=== PATIENT | female | born 1990 | race Hispanic/Latino ===

== ENCOUNTER 2018-03-29 11:03 | Emergency (ER) | payer OTHER ==
[2018-03-29] MEDS ORDERED: Sodium Chloride 0.9% 1,000 ML IV STA (12:08)
--- NOTE | 2018-03-29 12:17 | ED PDOC ---
HPI: Abdomen Time Seen by Provider: 03/29/18 11:48 Chief Complaint (Nursing): Chest Pain Chief Complaint (Provider): Abdominal pain History Per: Patient History/Exam Limitations: no limitations Additional Complaint(s): Pt @ 26 weeks reports bilateral upper abdominal pain X 1 day, constant, associated with bilateral lower back pain. Denies fever, nausea, vomiting, constipation, diarrhea, vaginal bleeding, vaginal discharge. Abnormal Vaginal Bleeding: No Past Medical History Reviewed: Nursing Documentation, Vital Signs Vital Signs: Last Vital Signs Temp 97.7 F 03/29/18 11:25 Pulse 77 03/29/18 11:25 Resp 17 03/29/18 11:25 BP 108/60 03/29/18 11:25 Pulse Ox 99 03/29/18 12:18 - Surgical History Surgical History: No Surg Hx - Family History Family History: States: Unknown Family Hx - Living Arrangements Living Arrangements: With Family - Social History Current smoker - smoking cessation education provided: No Alcohol: None - Allergies Allergies/Adverse Reactions: Allergies Allergy/AdvReac Type Severity Reaction Status Date / Time No Known Allergies Allergy Verified 03/29/18 11:24 Review of Systems Constitutional: Negative for: Fever, Chills Cardiovascular: Negative for: Chest Pain, Palpitations Respiratory: Negative for: Cough, Shortness of Breath Gastrointestinal: Positive for: Abdominal Pain. Negative for: Nausea, Vomiting , Diarrhea Genitourinary Female: Negative for: Dysuria, Hematuria, Vaginal Discharge, Vaginal Bleeding, Pelvic Pain Musculoskeletal: Positive for: Back Pain. Negative for: Neck Pain Skin: Negative for: Rash, Lesions Neurological: Negative for: Weakness, Numbness, Headache, Dizziness Physical Exam - Reviewed Nursing Documentation Reviewed: Yes Vital Signs Reviewed: Yes - Physical Exam Appears: Positive for: Well, No Acute Distress Skin: Positive for: Normal Color, Warm, Dry Eye Exam: Positive for: Normal appearance, EOMI, PERRL Cardiovascular/Chest: Positive for: Regular Rate, Rhythm Respiratory: Positive for: Normal Breath Sounds. Negative for: Rales, Rhonchi, Wheezing Gastrointestinal/Abdominal: Positive for: Normal Exam, Bowel Sounds, Soft, Other (Gravid). Negative for: Tenderness Back: Positive for: Normal Inspection, Other (TTP bilateral lower back). 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 Negative for: Motor/Sensory Deficits - ECG O2 Sat by Pulse Oximetry: 99 Medical Decision Making Medical Decision Making: Pt refusing further IV attempts. 13:[address] Galo, transfer to Ob ED. Disposition - Clinical Impression Clinical Impression: Abdominal pain during in second trimester - Disposition Disposition: Transfer of Care ([facility] ED) Disposition Time: 13:32 Condition: STABLE Instructions: Acute Abdomen (Belly Pain) Forms: [employer] ([place]i)
[2018-03-29] MEDS ORDERED: Famotidine 20mg/50ml 20 MG/50 ML BAG IVPB ONE (12:26)
[2018-03-29 13:49] VITALS: BP 110/68; PULSE 84; RESP 18; TEMP 97.8; O2SAT 100
[2018-03-29] MEDS ORDERED: Bicitra 30 ML UD PO ONE (15:21)
--- NOTE | 2018-03-29 15:53 | OBHP ---
Datetime: 03/29/2018 15:46 IP Adm Impression: , intrauterine IP Chief Complaint Other: mid epigastric discomfort,, N/V IP Admit Plan: Observation/Evaluation; Discharge home Admit Comment, IP Provider: Patient is a @ 25.5 wks with a history of mid-epigastric discomfort , nausea/vomiting, some episodes of diarhea yesterday. Patient was being triaged in the main ER, vomi kris once, currently feels better, denies discomfort except for mild abdominal discomfort, no fever, n o diarrhea today, no vaginal bleeding, no leaking, no dysuria. Pt did not have any food this morning. +FHR reassuring 150 mod delores, no accels, no decels, no contractions on the monitor. On exam, no pain on abdominal palpation, VSS. PO challenge was given and Bicitra. Overall patient was feeling better. Pt reported she was at a [employer] over the weekend and multiple people reportedly had food poisoning. Tiago waggoner discharged home with labor precautions, told to come back of s/s of food poisoning get worse, s trongly encouraged to drink lots of PO fluid at home Pelvic Type - PN: Adequate Extremities - PN: Normal Abdomen - PN: Normal Back - PN: Normal Breast - PN: Normal Lungs - PN: Normal Heart - PN: Normal Thyroid - PN: Normal Neurologic - PN: Normal HEENT - PN: Normal General - PN: Normal FHR - Baseline A Provider: 150 Contraction Comments Provider: None Vital Signs Provider: Reviewed; Within Normal Limits NICHD Variability Prov Fetus A: Moderate 6-25bpm Genitourinary Exam: Normal DTRs - PN: Normal
--- NOTE | 2018-03-29 15:53 | OBDCSUM ---
Datetime: 03/29/2018 15:39 Discharged to, Provider: Home Follow up at, Provider: Dr. Campos Disch Instr Activity: Normal activity Disch Instr Diet: Restricted, specify Discharge Diet restrict Prov: liquids, advance slowly to solids. BRAT diet. Discharge Instructions, Provider: Routine instructions given Discharge Time: 03/29/2018 15:40 Follow up in weeks, Provider: next scheduled appointment Disch Referrals: None Contraception discussed, Prov: Yes Discharge Diagnosis Prov Other: Nausea/vomiting/food poisoning
--- NOTE | 2018-03-30 11:09 | CARD ---
APPROVED REPORT EKG Measurement Heart [id number] MS [id number] <Conclusion> Normal sinus rhythm Normal ECG
== END 2018-03-29 15:40 | disposition home or self-care (01) ==
LOC: H.EROB2 11:03 → H.ER 11:03 → H.EROB2 15:40
DX: O26.92 Pregnancy related conditions, unspecified, second trimester (principal); R10.2 Pelvic and perineal pain; O21.0 Mild hyperemesis gravidarum; R11.0 Nausea; R19.7 Diarrhea, unspecified

== ENCOUNTER 2018-03-29 16:20 | Emergency (ER) | payer OTHER ==
[2018-03-29 16:27] VITALS: BMI 36.1
[2018-03-29] MEDS ORDERED: Lactated Ringer's 1,000 ML IV SCH ×2 (16:45)
[2018-03-29 17:37] LABS: HEMOGLOBIN 13.8 g/dL (12.0-16.0); MEAN CELL VOLUME 89.8 fl (81.0-99.0); MEAN CORPUSCULAR HEMOGLOBIN 30.4 pg (27.0-31.0); MEAN CORPUSCULAR HGB CONC 33.9 g/dL (33.0-37.0); RBC 4.53 Mil/uL (3.80-5.20); RED CELL DISTRIBUTION WIDTH 12.5 % (11.5-14.5); WHITE BLOOD COUNT 16.9 K/uL (4.8-10.8)
--- NOTE | 2018-03-29 17:42 | OBHP ---
Datetime: 03/29/2018 17:39 IP Chief Complaint Other: nausea/vomiting Admit Comment, IP Provider: Patient is a @ 25.5 wks, reporting nausea/vomiting today, pt was di scharged earlier this afternoon, was in lobby about to go home and vomited again. Patient brought dariela k upstairs, no fever, no present vomiting, vaginal bleeding/leaking, +FM, no abdominal pain on exam. Will keep pt NPO, IVF LR fluid bolus then run at 150 ml/hr, CBC/lipase/Amylase/CMP, IV Zofran, IV Pro tonix. Will continue to observe patient. +FHR in 150s Pelvic Type - PN: Adequate Extremities - PN: Normal Abdomen - PN: Normal Back - PN: Normal Breast - PN: Normal Lungs - PN: Normal Heart - PN: Normal Thyroid - PN: Normal Neurologic - PN: Normal HEENT - PN: Normal General - PN: Normal FHR - Baseline A Provider: 150 Contraction Comments Provider: none Vital Signs Provider: Reviewed; Within Normal Limits NICHD Variability Prov Fetus A: Moderate 6-25bpm NICHD Decel Fetus A IP Provider: None Genitourinary Exam: Normal DTRs - PN: Normal
[2018-03-29 17:50] LABS: ALB/GLOB RATIO 1.1 (1.0-2.1); ALBUMIN 3.9 g/dL (3.5-5.0); ALT/SGPT 35 U/L (9-52); AST/SGOT 32 U/L (14-36); BLOOD UREA NITROGEN 9 mg/dl (7-17); CALCIUM 9.1 mg/dL (8.4-10.2); GFR AFRICAN-AMERICAN > 60; GFR NON-AFRICAN AMERICAN > 60; LIPASE 133 U/L (23-300)
[2018-03-30 01:07] VITALS: BP 94/49; PULSE 85
== END 2018-03-29 19:45 | disposition home or self-care (01) ==
LOC: H.EROB2 16:25
DX: O21.0 Mild hyperemesis gravidarum (principal); O26.852 Spotting complicating pregnancy, second trimester; Z3A.25 25 weeks gestation of pregnancy
CPT/HCPCS: 80053; 83690; 85027; 86850; 86900; 96374; 96375; 99283; C9113; J2405; J7120

== ENCOUNTER 2018-07-12 20:45 | Inpatient (IN) | payer OTHER ==
[2018-07-12 20:59] VITALS: BMI 45.3
[2018-07-12] MEDS ORDERED: Lactated Ringer's 1,000 ML IV ONE (22:22)
[2018-07-12 23:55] LABS: BASO % 0.4 % (0.0-2.0); EOS # 0.3 K/uL (0.0-0.7); EOS % 2.3 % (0.0-4.0); HEMOGLOBIN 12.6 g/dL (12.0-16.0); LYMPH # 2.2 K/uL (1.0-4.3); LYMPH % 17.9 % (20.0-40.0); MEAN CORPUSCULAR HEMOGLOBIN 29.4 pg (27.0-31.0); MEAN CORPUSCULAR HGB CONC 33.5 g/dL (33.0-37.0); MEAN PLATELET VOLUME 7.2 fl (7.2-11.7); MONO # 0.8 K/uL (0.0-0.8); MONO % 6.7 % (0.0-10.0); NEUT # 8.9 K/uL (1.8-7.0); NEUT % 72.7 % (50.0-75.0); RBC 4.28 Mil/uL (3.80-5.20); RED CELL DISTRIBUTION WIDTH 12.8 % (11.5-14.5); WHITE BLOOD COUNT 12.2 K/uL (4.8-10.8)
[2018-07-13 01:06] VITALS: RESP 20
--- NOTE | 2018-07-13 07:56 | OBADHP ---
Datetime: 07/13/2018 01:47 Admit Comment, IP Provider: 28 year old female at 40.5 weeks presents due to minor abdominal cr amping and scheduled induction of labor. She is a patient of Dr. Campos and last saw him the morning of 07/12. She admits to new vaginal cramping a few hours prior to presentation but denies contractions, v aginal bleeding or loss of fluid. Good movement. Denies dizziness, headache, changes in vision, chest pain, shortness of breath, nausea, vomiting, diarrhea, constipation, urinary signs and symptom s. OBGYN Hx: HPV + PMH: denies Family Hx: denies Social: denies alcohol, tobacco, illicit drugs Surg Hx: cholecystectomy 2013 Allergies: denies Meds: denies, PNV daily ROS: negative unless noted in HPI Labs: HIV neg HbsAg neg GBS neg Rubella immune GC neg CL neg RPR neg Blood type: O+, antibody neg PE: lying comfortably, in no acute distress CV: RRR Resp: no respiratory distress, b/l air entry Abdominal: no tenderness to palpation Extremities: no pitting edema Pelvic: class a lineman present. no external lesions. 0/0/+3. Cervadil placed @ 11:55pm 07/12 Assessment: 28 year old female at 40.5 weeks presents due to minor abdominal cramping and beni eduled induction of labor. Plan: -Admit for labor induction -IVF -labs (Hg/Hct 12.6/37.7) -Constant EFM -Cervadil @ 11:55 07/12 -Reassess after cervadil removal 07/13 Case seen with and discussed with Dr Vásquez. -----Quita Bishop MD PGY1 [facility] Family Medicine Pelvic Type - PN: Adequate Extremities - PN: Normal Abdomen - PN: Normal Back - PN: Not Done Breast - PN: Not Done Lungs - PN: Normal Heart - PN: Normal Thyroid - PN: Not Done Neurologic - PN: Not Done HEENT - PN: Normal General - PN: Normal FHR - Baseline A Provider: 140 Vital Signs Provider: Reviewed; Within Normal Limits IP Chief Complaint: Scheduled induction of labor; evaluation NICHD Variability Prov Fetus A: Moderate 6-25bpm NICHD Accel Fetus A IP Provider: [id number] FHR Category Provider Fetus A: Category I NICHD Decel Fetus A IP Provider: None Dilatation, Provider: 0 Effacement, Provider: 0 Station, Provider: 3 Genitourinary Exam: Not Done DTRs - PN: Not Done EGA AdmitDate IP: 40.6 IP Adm Impression: Term, intrauterine IP Admit Plan: Admit to unit; Initiate labor induction protocol Datetime: 03/29/2018 17:39 IP Chief Complaint Other: nausea/vomiting Contraction Comments Provider: none
--- NOTE | 2018-07-13 11:12 | OBPN ---
Datetime: 07/13/2018 09:00 IP Progress Impression: Reassuring heart rate IP Informed Consent Obtain: Vaginal Delivery IP Progress Plan: Continue present management; Induction; Cervical Ripening; Anticipate Vaginal Deli very IP Progress Note Comment: She fels occ CTX but bearable. Discussion about pain managment. A: IUP at 41w post dates PLAN: Cervidil still in place...will re-evaluate after removed. Allow to eat and ambualte. FHR Category Provider Fetus A: Category I Datetime: 07/13/2018 01:47 FHR - Baseline A Provider: 140 Vital Signs Provider: Reviewed; Within Normal Limits NICHD Accel Fetus A IP Provider: [id number] NICHD Variability Prov Fetus A: Moderate 6-25bpm Dilatation, Provider: 0 Effacement, Provider: 0 Station, Provider: 3 NICHD Decel Fetus A IP Provider: None Datetime: 03/29/2018 17:39 Contraction Comments Provider: none
[2018-07-13] MEDS ORDERED: Nalbuphine HCL 10 mg/ml Ampule IVP PRN (12:24)
[2018-07-13] MEDS ORDERED: Nalbuphine 20 mg/ml Inj (1 ml) IVP PRN (13:15)
[2018-07-13] MEDS: Lactated Ringer's 1,000 ML IV SCH ×2 (14:00→16:29)
[2018-07-13] MEDS ORDERED: Fentanyl/Bupivacaine HCl 250 ML EPI ONE (15:38)
--- NOTE | 2018-07-13 17:58 | OBPN ---
Datetime: 07/13/2018 17:35 IP Progress Impression: Normal progression of labor; Reassuring heart rate IP Progress Plan: Augmentation; Anticipate Vaginal Delivery Contraction Comments Provider: occ irregul FHR - Baseline A Provider: 130 Presentation-Admit: Vertex IP Progress Note Comment: Earlier today, she had Cervidl removed arond 12pm....had some CTX pain. S he was given Nitrous for pain relief. She was given one dose of Cytotec and IV Nubain. Later she re quested epidural and feels better ex for a headache. She was evaluated by Dr Lyman post epidural. Will give Tylenol supp. A: Latent phase of labor (S/P Cervidil/Cytotec x 1 dose) PLAN: Womack just placed; SCD boots Discussion with pt about progress...Augmentation discussed with Pitocin...she agreed. Her was present for discussion NICHD Accel Fetus A IP Provider: 15X15 FHR Category Provider Fetus A: Category I NICHD Variability Prov Fetus A: Moderate 6-25bpm Dilatation, Provider: 2-3 Effacement, Provider: 75 Station, Provider: -2 NICHD Decel Fetus A IP Provider: None
[2018-07-13] MEDS ORDERED: Oxytocin 30 UNIT 30 UNITS/500 ML BAG IV ONE (18:53)
--- NOTE | 2018-07-14 07:39 | OBPN ---
Datetime: 07/14/2018 06:00 IP Progress Plan Other: On Pitocin IP Progress Impression: Normal progression of labor; Reassuring heart rate IP Progress Plan: Augmentation; Anticipate Vaginal Delivery Membranes, Provider: Ruptured IP Progress Note Comment: Notidfied last nigth thatsaude was -5cm at midnight. Had SROM 1am. She fe lt pressure and was fully dliated 0 station at 5:30am. She feels fine and is happy that she is fully Second stage of labor PLAN anticipate FHR Category Provider Fetus A: Category I Dilatation, Provider: 10 Effacement, Provider: 100 Station, Provider: 0 NICHD Decel Fetus A IP Provider: None
[2018-07-14] MEDS ORDERED: Fentanyl/Bupivacaine HCl 250 ML EPI ONE (10:40)
[2018-07-14] MEDS ORDERED: ceFAZolin IV 2 gm in Dextrose 2 GM/50 ML BAG IVPB ONE ×2 (12:09→15:45)
[2018-07-14] MEDS ORDERED: Bupivacaine HCl 0.5% PF (30 ml) Inj ONE (12:10)
[2018-07-14] MEDS ORDERED: OXYTOCIN/0.9 % NS 20 UNIT/1,000 ML BAG IV SCH ×2 (12:15→12:30)
[2018-07-14] MEDS ORDERED: ceFAZolin 2 GM in Sodium Chloride 0.9% 100 ML IVPB ONE (12:21)
[2018-07-14] MEDS ORDERED: Azithromycin 500 MG in Sodium Chloride 0.9% 250 ML IVPB STA (12:37)
[2018-07-14] MEDS ORDERED: ePHEDrine 50 mg/ml Inj ONE (13:17)
[2018-07-14] MEDS ORDERED: Oxytocin 30 UNIT 30 UNITS/500 ML BAG IV ONE (13:44)
[2018-07-14] MEDS ORDERED: Midazolam 2 MG/2 ML VIAL ONE (14:10)
[2018-07-14] MEDS ORDERED: Morphine 1 mg/ml preservative-free Inj(Duramorph) ONE (14:43)
[2018-07-14] MEDS ORDERED: Oxycodone/Acetaminophen 5/325 mg Tab PO PRN (16:54)
--- NOTE | 2018-07-14 18:52 | OBDS ---
DELIVERY PERSONNEL Delivery Doctor: Toamsa Cameron MD Scrub Nurse: Patrick Mobile Application Engineer: Addison Anesthesiologist: Dr Chavarria Resident: Dr Shaikh(OB FELLOW) MATERNAL INFORMATION Delivery Anesthesia: Epidural Medications in Delivery: Pitocin Estimated Blood Loss (ml): 1000 Placenta Cultured: No Maternal Complications: None Provider Comments: See operative report LABOR SUMMARY EDC: 07/07/2018 00:00 No. Babies in Womb: 1 Attempted: No Labor Anesthesia: Epidural LABOR INFORMATION Reason for Induction: Postterm Onset of Labor: 07/13/2018 15:21 Complete Dilatation: 07/14/2018 05:25 Cervical Ripening Agents: Cytotec @ Other Ripening Agents: cytotec Oxytocin: N/A Group B Beta Strep: Negative Antibiotics # of Doses: Ancef 2 grams IVPB and Zithromax 500mg Antibiotics Time of Last Dose: 1255 and 1315 Steroids Given: None Reason Steroids Not Administered: Not Applicable MEMBRANES Membranes Rupture Method: Spontaneous Rupture of Membranes: 07/14/2018 01:00 Length of Rupture (hrs): 12.72 Amniotic Fluid Color: Clear Amniotic Fluid Amount: Scant Amniotic Fluid Odor: Normal STAGES OF LABOR Stage 1 hrs: 14 Stage 1 min: 4 Stage 2 hrs: 8 Stage 2 min: 18 Stage 3 hrs: 0 Stage 3 min: 1 Total Time in Labor hrs: 22 Total Time in Labor min: 23 BABY A INFORMATION Delivery Date/Time: 07/14/2018 13:43 Method of Delivery: Born in Route : No : N/A Forceps: N/A Vacuum Extraction: N/A Shoulder Dystocia : No SHOULDER DYSTOCIA BABY A Infant Delivery Date/Time: 07/14/2018 13:43 PRESENTATION/POSITION BABY A Presentation: Cephalic Cephalic Presentation: Vertex Breech Presentation: N/A PLACENTA INFORMATION BABY A Placenta Delivery Time : 07/14/2018 13:44 Placenta Method of Delivery: Expressed Placenta Status: Delivered SCORES BABY A Heart Rate 1 min: >100 bpm Resp Effort 1 min: Good Cry Reflex Irritability 1 min: Cough or Sneeze or Pulls Away Muscle Tone 1 min: Active Motion Color 1 min: Body Oakes, Extremities Blue Resuscitation Effort 1 min: Tactile Stimulation SCORE 1 MIN: 9 Heart Rate 5 min: >100 bpm Resp Effort 5 min: Good Cry Reflex Irritability 5 min: Cough or Sneeze or Pulls Away Muscle Tone 5 min: Active Motion Color 5 min: Body Oakes, Extremities Blue Resuscitation Effort 5 min: N/A SCORE 5 MIN: 9 INFANT INFORMATION BABY A Gestational Age at Delivery: 41.0 Gestational Status: Post-term Infant Outcome : Liveborn Infant Condition : Stable Sex: Female IDENTIFICATION/MEDS BABY A ID Band Number: [id number] ID Band Location: Left Leg; Left Arm Vitamin K Given : Not Given Erythromycin Given: Not Given WEIGHT/LENGTH BABY A Birthweight (gms): 3230 Infant Weight (lb): 7 Infant Weight (oz): 2 Infant Length Inches: 21.00 Length cms: 53.3 CORD INFORMATION BABY A No. Cord Vessels: 3 Nuchal Cord : N/A Nuchal Cord Other: n/a True Knot: n/a Cord pH Baby Arterial: n/a Cord Blood Taken: Yes Banking/Donate Info: n/a Suction: Mouth; Nose ASSESSMENT BABY A Infant Complications: None Physical Findings at Delivery: Within Normal Limits Infant Respirations: Appears Normal Overhauler Bus Truck/ALS Called : No Care By: Dr Bowers/Jose sumner /Crispin
[2018-07-15] MEDS: Oxycodone/Acetaminophen 5/325 mg Tab PO PRN ×2 (06:58→19:56)
[2018-07-15 07:01] LABS: HEMOGLOBIN 10.2 g/dL (12.0-16.0); MEAN CELL VOLUME 88.1 fl (81.0-99.0); MEAN CORPUSCULAR HEMOGLOBIN 30.8 pg (27.0-31.0); MEAN CORPUSCULAR HGB CONC 34.9 g/dL (33.0-37.0); RBC 3.33 Mil/uL (3.80-5.20); RED CELL DISTRIBUTION WIDTH 13.1 % (11.5-14.5); WHITE BLOOD COUNT 19.1 K/uL (4.8-10.8)
--- NOTE | 2018-07-15 08:30 | OP ---
PROCEDURE DATE: 07/14/18 PREOPERATIVE DIAGNOSIS: Arrest of descent. POSTOPERATIVE DIAGNOSIS: Arrest of descent. POSITION: Occiput posterior. SURGEON: Daljit Cameron MD TECHNICIAN HELPER INSTRUMENT: Gina Shaikh. ESTIMATED BLOOD LOSS: 1000 mL. INTRAVENOUS FLUID INTAKE: The patient received 1100 mL of D5 LR intraoperatively. URINE OUTPUT: The patient put out approximately 200 mL of clear urine. COMPLICATIONS: There were no complications. OPERATIVE FINDINGS: Female infant, Apgars 9 and 9, weighing 3230 g. Normal uterus, tubes, and ovaries were identified. The infant was in occiput posterior position. DESCRIPTION OF PROCEDURE: After informed consent was obtained, the patient was taken to the operating room, where she was given spinal anesthesia. The patient's epidural was bolused. She was then prepped and draped in a normal sterile fashion with leftward tilt. A Pfannenstiel skin incision was then made with a scalpel and carried down to the underlying layer of fascia. The fascia was nicked in the midline. The fascial incision was then extended laterally with curved Hoffman scissors. The superior aspect of the fascial incision was then grasped with Hector clamps, elevated up and the rectus muscles were dissected off using both sharp and blunt dissection. Attention was then turned to the superior aspect of the fascial incision, which in a similar fashion was grasped with Hector clamps, elevated up and the rectus muscles were dissected off using both sharp and blunt dissection. The rectus muscles were then in the midline. The peritoneum was identified and entered sharply with Metzenbaum scissors. The peritoneal incision was then extended superiorly and inferiorly with good visualization of the bladder. A bladder blade was then inserted. The vesicouterine peritoneum was identified, grasped with smooth pickups and entered sharply with Metzenbaum scissors. The incision was then extended laterally and the bladder flap was created digitally. The bladder blade was then readjusted and a low transverse incision was made with a scalpel. The incision was then extended laterally with bandage scissors. The was then delivered atraumatically. The nose and mouth were suctioned with DeLee suction trap. The cord was clamped and cut, and the was handed off to awaiting pediatricians. Cord blood was obtained. The placenta was then removed manually. The uterus was exteriorized and cleared of all clots and debris. There was a right uterine extension which was repaired with 0 Vicryl in a running-locked fashion. The uterine incision was then repaired with 0 Vicryl in a running-locked fashion, the second layer of the same suture was used to obtain excellent hemostasis. The uterus was then returned to the abdomen. The abdomen was then copiously irrigated. The irrigant was removed with the suction device. Hemostasis was noted. The gutters were then cleared of all clots and debris. The incision was reexamined and noted to be hemostatic. The peritoneum was then closed with 2-0 Vicryl in a running fashion. The muscle were reapproximated with 0 Vicryl in an interrupted fashion. The fascia was closed with 0 Vicryl in a running fashion. The skin was closed with 3-0 on a Kike needle. All sponge, lap, needle, and instrument counts were correct x2. The patient was taken to the recovery room in awake and stable condition. Daljit Cameron MD
[2018-07-15] MEDS ORDERED: Multivitamin With Minerals Tab PO SCH (09:00)
[2018-07-15] MEDS: Simethicone 80 mg Chewtab PO SCH (21:15)
[2018-07-16] MEDS: Oxycodone/Acetaminophen 5/325 mg Tab PO PRN ×3 (00:35→09:11)
[2018-07-16] MEDS: Simethicone 80 mg Chewtab PO SCH ×4 (04:00→21:50)
--- NOTE | 2018-07-16 09:03 | OBPPN ---
Datetime: 07/15/2018 08:59 PP Pain Prov: Within normal limits PP Nausea Prov: Denies PP Flatus Prov: Yes PP Breasts Prov: Normal PP Heart Prov: Normal PP Lungs Prov: Normal PP Abdomen/Uterus Prov: Normal PP Lochia Prov: Normal PP Vulva/Perineum Prov: Normal PP CVA Tenderness Prov: Normal PP Extremities Prov: Normal PP Comments Phys Exam Prov: Abd soft, NT, ND Uterus firm below umb Inc C/D/I No DCT bilaterally PP Impression Prov: Normal progression PP Plan Prov: Continue present management PP Progress Note Prov: POD #1 s/p C/S, recovering well Ambulate, OOB Pain control CBC Regular diet Womack out, void check IP PP Procedures: None Vital Signs Provider PP: Reviewed; Within Normal Limits
--- NOTE | 2018-07-16 10:56 | OBPPN ---
Datetime: 07/16/2018 10:54 PP Pain Prov: Within normal limits PP Nausea Prov: Denies PP Flatus Prov: Yes PP Breasts Prov: Not Done PP Heart Prov: Normal PP Lungs Prov: Normal PP Abdomen/Uterus Prov: Normal PP Lochia Prov: Not Done PP Vulva/Perineum Prov: Not Done PP CVA Tenderness Prov: Normal PP Extremities Prov: Normal PP C/S Incision Prov: Normal PP Impression Prov: Normal progression PP Progress Note Prov: Patient doing well tolerating diet Vital signs stable afebrile Uterus firm below the umbilicus Incision clean dry and intact Postoperative day #2 Analgesia, regular diet, anticipate discharge in a.m. Vital Signs Provider PP: Reviewed
[2018-07-17] MEDS: Simethicone 80 mg Chewtab PO SCH ×2 (04:16→10:10)
--- NOTE | 2018-07-17 11:56 | OBPPN ---
Datetime: 07/17/2018 11:52 PP Pain Prov: Within normal limits PP Nausea Prov: Denies PP Flatus Prov: Yes PP Breasts Prov: Normal PP Heart Prov: Normal PP Lungs Prov: Normal PP Abdomen/Uterus Prov: Normal PP Lochia Prov: Normal PP Vulva/Perineum Prov: Normal PP CVA Tenderness Prov: Normal PP Extremities Prov: Normal PP Comments Phys Exam Prov: Abd: Soft, NT, BS- present UT- Firm Incision: Clean, dry, Intact PP Impression Prov: Normal progression PP Plan Prov: Discharge PP Progress Note Prov: S/P Delivery, POD#3 Clinically Stable. Plan: D/c Home. Vital Signs Provider PP: Reviewed
--- NOTE | 2018-07-17 11:58 | OBDCSUM ---
Datetime: 07/17/2018 11:55 Discharged to, Provider: Home Follow up at, Provider: OB clinic Disch Instr Activity: Normal activity Disch Instr Diet: Regular Discharge Instructions, Provider: Routine instructions given Discharge Diagnosis, Provider: Term Delivered Discharge Time: 07/17/2018 11:55 Follow up in weeks, Provider: 2 weeks for wound check Disch Referrals: None Contraception discussed, Prov: Yes Discharge Comment, Provider: S/P Uncomplicated Delivery, clinically Stable Discharge Diagnosis Prov Other: S/P Uncomplicated Delivery, clinically Stable
[2018-07-17 20:07] VITALS: BP 113/74; PULSE 97; TEMP 98.3; O2SAT 98
== END 2018-07-17 13:45 | disposition home or self-care (01) | DRG 788 ==
LOC: H.EROB2 20:45 → H.L&D 22:23 → H.OB/GYN 07-14 19:40
PROVIDERS: ADMIT Obstetrics & Gynecology; ATTEND Obstetrics & Gynecology
PROC: 10D00Z1 Extraction of Products of Conception, Low, Open Approach (ICD-10-PCS; principal; 2018-07-12)
PROC: 4A1HXCZ Monitoring of Products of Conception, Cardiac Rate, External Approach (ICD-10-PCS; 2018-07-12)
DX: O48.0 Post-term pregnancy (principal); Z3A.41 41 weeks gestation of pregnancy; Z37.0 Single live birth; O62.1 Secondary uterine inertia